=== PATIENT | female | born 1940 | race Caucasian/White ===

== ENCOUNTER 2018-03-16 08:23 | Outpatient (REF) | payer MEDICARE, SELFPAY ==
[2018-03-16 21:44] LABS: HGB 13.1 g/dL (12.0-15.5); Mean Corp. HGB Concentration 31.2 g/dL (32.0-36.0); Mean Corpuscular Hemoglobin 27.9 pg (27.0-33.0); Mean Corpuscular Volume 89.4 fL (80-95); Mean Platelet Volume 11.2 fL (8.0-11.0); Platelet Count 248 x1000/uL (130-400); RBC Distribution Width 14.9 % (11.7-14.6); White Blood Cell Count 8.62 k/cumm (4.4-10.8)
[2018-03-16 21:54] LABS: Iron 64 ug/dL (50-175)
[2018-03-16 22:22] LABS: ALT 17 U/L (12-78); AST 15 U/L (15-37); Albumin 3.6 g/dL (3.4-5.0); Alkaline Phosphatase 30 U/L (46-116); BUN 17 mg/dL (7-18); Bilirubin, Total 0.5 mg/dL (0.2-1.0); CREATININE 0.91 mg/dL (0.55-1.02); Calcium 9.2 mg/dL (8.5-10.1); Chloride 108 mmol/L (98-107); Ferritin 12 ng/mL (8-388); Glucose 106 mg/dL (70-100); Magnesium 1.6 mg/dL (1.8-2.4); Potassium 4.2 mmol/L (3.5-5.1); Sodium 144 mmol/L (136-145); TSH (W/Ref FT4) 1.48 uIU/mL (0.358-3.74); Total Protein 6.8 g/dL (6.4-8.2)
[2018-03-16 22:26] LABS: Vitamin B12 > 2000 pg/mL (193-986)
[2018-03-17 05:19] LABS: Vitamin D 25 Total 30.1 ng/ml (30-100)
[2018-03-18 10:41] LABS: Parathyroid Hormone,Intact 50 pg/ml (19-88)
[2018-03-19 09:54] LABS: Thiamine (Vitamin B1), WB 154 nmol/L (70-180)
== END 2018-03-16 08:43 ==
LOC: NCHCN 08:23
PROVIDERS: PCP Family Medicine; Visit Provider Family Medicine
DX: R35.1 Nocturia (principal); N18.3 Chronic kidney disease, stage 3 (moderate); E11.9 Type 2 diabetes mellitus without complications; I10 Essential (primary) hypertension; R00.2 Palpitations; R79.89 Other specified abnormal findings of blood chemistry
CPT/HCPCS: 80053; 82306; 85027; 87077; 82607; 82728; 83540; 83735; 83970; 84425; 84443; 87086; 87186